=== PATIENT | male | born 1935 | race African-American/Black ===

== ENCOUNTER 2017-04-25 10:30 | Inpatient (IN) | payer OTHER, MEDICARE ==
[~2017-04-25] VITALS: Ht 172.7 cm; Wt 73.5 kg
[2017-04-25] MEDS ORDERED: SODIUM CHLORIDE 0.9% 1,000 ML IV ONE (10:44)
[2017-04-25] MEDS ORDERED: ONDANSETRON HCL 4MG/2ML VIAL IV ONE (11:15)
[2017-04-25 11:34] LABS: BASOPHILS % 0.3 % (0.0-2.0); EOSINOPHILS % 0.3 % (0.0-5.0); HEMATOCRIT. 50.2 % (42.0-52.0); HEMOGLOBIN. 15.9 g/dL (14.0-18.0); LYMPHOCYTES % 18.8 % (20.0-50.0); MEAN CORPUSCULAR VOLUME 101.3 fL (80.0-94.0); MEAN PLATELET VOLUME 10.1 fl (7.4-10.4); MONOCYTES % 4.8 % (2.0-8.0); NEUTROPHILS % 75.8 % (40.0-76.0); PLATELET 144 x1000/uL (130-400); RED BLOOD CELL COUNT 4.95 mill/uL (4.7-6.1); RED CELL DISTRIBUTION WIDTH 16.7 % (11.6-14.6)
[2017-04-25 11:52] LABS: CARBON DIOXIDE 21 mEq/L (21-32); CHLORIDE 133 mEq/L (98-107); ETHANOL BLOOD < 10 mg/dL; TROPONIN I 0.15 ng/mL (0.00-0.04)
[2017-04-25 11:53] LABS: INR 1.4; PROTHROMBIN TIME 14.1 sec (9.4-11.6)
[2017-04-25 12:00] LABS: PARTIAL THROMBOPLASTIN TIME < 21.0 sec (23.4-31.0)
[2017-04-25] MEDS ORDERED: CEFTRIAXONE 1 G PREMIX 50 ML IV ONE (12:15)
[2017-04-25 12:18] LABS: GLUCOSE URINE NEGATIVE (NEGATIVE); KETONES URINE TRACE (NEGATIVE); LEUKOCYTE ESTERASE URINE NEGATIVE (NEGATIVE); NITRITE URINE NEGATIVE (NEGATIVE); OCCULT BLOOD URINE 2+ (NEGATIVE); PROTEIN URINE 2+ (NEGATIVE)
[2017-04-25 12:30] LABS: AMMONIA 35 uMol/L (<32)
[2017-04-25 12:34] LABS: CLARITY URINE CLOUDY (CLEAR); COLOR URINE YELLOW (YELLOW)
[2017-04-25 12:35] LABS: BG BASE EXCESS -8.8 mmol/L (-2.0-2.0); BG CARBOXYHEMOGLOBIN 0.3 % (0.5-1.5); BG DEOXYHEMOGLOBIN 3.4 % (0.0-5.0); BG HCO3 ACT 15.1 mmol/L (22.0-26.0); BG METHEMOGLOBIN 0.1 % (0.0-1.5); BG OXYGEN SATURATION 96.6 % (92.0-98.5); BG OXYHEMOGLOBIN 96.2 % (94.0-97.0); BG PCO2 28.2 mmHg (35.0-45.0); BG PH 7.347 (7.350-7.450); BG PO2 98.3 mmHg (75.0-100.0); BG SAMPLE SITE RIGHT RADIAL; BG VENT MODE ROOM AIR
[2017-04-25 12:41] LABS: *AMPHETAMINES SCREEN URINE NEGATIVE (NEGATIVE); *BARBITURATES SCREEN URINE NEGATIVE (NEGATIVE); *BENZODIAZEPINES SCREEN URINE NEGATIVE (NEGATIVE); *COCAINE SCREEN URINE NEGATIVE (NEGATIVE); CANNABINOID URINE SCREEN NEGATIVE (NEGATIVE); METHADONE URINE SCREEN NEGATIVE (NEGATIVE); OPIATES URINE SCREEN NEGATIVE (NEGATIVE); PHENCYCLIDINE URINE SCREEN NEGATIVE (NEGATIVE)
[2017-04-25] MEDS ORDERED: DEXT 5%/0.45% NACL 1000ML 1,000 ML IV SCH (13:33)
[2017-04-25] MEDS ORDERED: IPRATROPIUM/ALBUTEROL 0.5-3(2.5)MG/3ML NEB INH PRN (13:45)
[2017-04-25] MEDS ORDERED: ONDANSETRON HCL 4MG/2ML VIAL IV PRN (13:45)
[2017-04-25] MEDS ORDERED: DOCUSATE SODIUM 100MG CAPSULE PO PRN (13:45)
[2017-04-25] MEDS ORDERED: MAGNESIUM/ALUMINUM HYDROXIDE/SIMETHICONE 30ML UDC PO PRN (13:45)
[2017-04-25] MEDS ORDERED: DIPHENHYDRAMINE 50MG/ML VIAL IV PRN (13:45)
[2017-04-25] MEDS ORDERED: ACETAMINOPHEN 325MG TABLET PO PRN (13:45)
[2017-04-25] MEDS ORDERED: CLONIDINE 0.1MG TABLET PO PRN (13:45)
[2017-04-25] MEDS ORDERED: GUAIFENESIN 200MG/10ML SUGAR FREE UDC PO PRN (13:45)
[2017-04-25] MEDS ORDERED: NA PHOS,M-B/NA PHOS,DI-BA ENEMA 118ML PR PRN (13:45)
[2017-04-25 16:25] VITALS: BP 144/85
[2017-04-25] MEDS ORDERED: SODIUM CHLORIDE 0.45% 1,000 ML IV SCH (16:30)
[2017-04-25 16:41] VITALS: BP 144/82
[2017-04-25] MEDS ORDERED: DEXTROSE 50% WATER 50ML SYRINGE IV PRN (16:45)
[2017-04-25] MEDS ORDERED: SODIUM CHLORIDE 0.9% 500 ML IV ONE (17:00)
[2017-04-25] MEDS: BLOOD SUGAR DIAGNOSTIC STRIP TEST SCH ×2 (17:22→21:11)
[2017-04-25] MEDS: ENOXAPARIN 30MG/0.3ML SYR SUBCUT SCH (17:50)
[2017-04-25] MEDS: INSULIN LISPRO 100 UNITS/ML SUBCUT SCH ×2 (17:51→21:00)
[2017-04-25] MEDS ORDERED: ASPI-986 PO (17:54)
[2017-04-25] MEDS ORDERED: AMLO10TA80 PO (17:54)
[2017-04-25] MEDS ORDERED: ATOR20TA65 PO (17:55)
[2017-04-25 19:35] LABS: FOLIC ACID (FOLATE) SERUM 10.8 ng/mL (>5.38)
[2017-04-25 20:00] VITALS: BP 145/99
[2017-04-25] MEDS ORDERED: LEVOFLOXACIN 500MG PREMIX 100 ML IV SCH (20:00)
[2017-04-25 20:40] LABS: CARBON DIOXIDE 19 mEq/L (21-32); CHLORIDE 138 mEq/L (98-107)
[2017-04-25 20:51] LABS: CREATINE KINASE MB FRACTION 5.3 ng/mL (0.5-3.6); HDL CHOLESTEROL 36 mg/dL (40-59); LDL CHOLESTEROL 89 mg/dL (5-100); T4 FREE 1.35 ng/dL (0.76-1.46); TOTAL IRON BINDING CAPACITY 177 ug/dL (250-450); TROPONIN I 0.16 ng/mL (0.00-0.04)
[2017-04-25] MEDS ORDERED: FAMOTIDINE 20MG/2ML VIAL IV SCH (21:00)
[2017-04-25] MEDS ORDERED: DEXTROSE 5% WATER 1,000 ML IV SCH (21:15)
[2017-04-25] MEDS: SODIUM CHLORIDE 0.45% 1,000 ML IV SCH (21:30)
[2017-04-25] MEDS ORDERED: DEXT 5% WATER 500 ML IV SCH (22:00)
[2017-04-25] MEDS ORDERED: LEVOFLOXACIN 500MG PREMIX 100 ML IV NR ×2 (23:00→23:30)
[2017-04-26] VITALS: BP 142/84
[2017-04-26 01:00] LABS: SODIUM URINE RANDOM 49 mEq/L
[2017-04-26 01:08] LABS: *AMPHETAMINES SCREEN URINE NEGATIVE (NEGATIVE); *BARBITURATES SCREEN URINE NEGATIVE (NEGATIVE); *BENZODIAZEPINES SCREEN URINE NEGATIVE (NEGATIVE); *COCAINE SCREEN URINE NEGATIVE (NEGATIVE); CANNABINOID URINE SCREEN NEGATIVE (NEGATIVE); METHADONE URINE SCREEN NEGATIVE (NEGATIVE); OPIATES URINE SCREEN NEGATIVE (NEGATIVE); PHENCYCLIDINE URINE SCREEN NEGATIVE (NEGATIVE)
[2017-04-26] MEDS: BLOOD SUGAR DIAGNOSTIC STRIP TEST SCH ×3 (07:40→18:12)
[2017-04-26 08:00] VITALS: BP 143/84
[2017-04-26] MEDS: INSULIN LISPRO 100 UNITS/ML SUBCUT SCH ×3 (08:10→18:10)
[2017-04-26] MEDS ORDERED: CEFTRIAXONE 1 G PREMIX 50 ML IV SCH ×2 (09:00)
[2017-04-26] MEDS: SODIUM CHLORIDE 0.45% 1,000 ML IV SCH (09:35)
[2017-04-26 10:22] LABS: BASOPHILS % 0.4 % (0.0-2.0); EOSINOPHILS % 0.9 % (0.0-5.0); HEMATOCRIT. 43.3 % (42.0-52.0); HEMOGLOBIN. 13.6 g/dL (14.0-18.0); LYMPHOCYTES % 15.7 % (20.0-50.0); MEAN CORPUSCULAR HEMOGLOBIN 31.3 pg (28.0-32.0); MEAN CORPUSCULAR VOLUME 99.4 fL (80.0-94.0); MONOCYTES % 8.1 % (2.0-8.0); NEUTROPHILS % 74.9 % (40.0-76.0); PLATELET 124 x1000/uL (130-400); RED BLOOD CELL COUNT 4.35 mill/uL (4.7-6.1); RED CELL DISTRIBUTION WIDTH 16.4 % (11.6-14.6)
[2017-04-26 10:41] LABS: CREATINE KINASE MB FRACTION 5.3 ng/mL (0.5-3.6); PHOSPHORUS 3.6 mg/dL (2.5-4.9)
[2017-04-26 10:43] LABS: TROPONIN I 0.17 ng/mL (0.00-0.04)
[2017-04-26 12:00] VITALS: BP 135/82
[2017-04-26 16:00] VITALS: BP 152/96
[2017-04-26] MEDS ORDERED: DEXTROSE 5% WATER 1,000 ML IV SCH (16:15)
[2017-04-26] MEDS: ENOXAPARIN 30MG/0.3ML SYR SUBCUT SCH (18:00)
[2017-04-26 18:04] VITALS: BP 152/96
[2017-04-26 20:00] VITALS: BP 135/89
[2017-04-26] MEDS ORDERED: LEVOFLOXACIN 250MG PREMIX 50 ML IV SCH (23:30)
== END 2017-04-26 20:40 | disposition short-term general hospital (02) | DRG 871 ==
LOC: EDBD 10:30 → ER 10:30 → 7WST 12:05 → EDBEDREQ 12:07 → ENRESERV 13:09
PROVIDERS: ADMIT Internal Medicine; ATTEND Internal Medicine
DX: A41.9 Sepsis, unspecified organism (principal); G92 Toxic encephalopathy; N17.0 Acute kidney failure with tubular necrosis; I21.4 Non-ST elevation (NSTEMI) myocardial infarction; E87.4 Mixed disorder of acid-base balance; C79.51 Secondary malignant neoplasm of bone; E87.0 Hyperosmolality and hypernatremia; E44.0 Moderate protein-calorie malnutrition; E11.65 Type 2 diabetes mellitus with hyperglycemia; C34.31 Malignant neoplasm of lower lobe, right bronchus or lung; C34.32 Malignant neoplasm of lower lobe, left bronchus or lung; I48.91 Unspecified atrial fibrillation; J43.9 Emphysema, unspecified; E04.9 Nontoxic goiter, unspecified; I25.10 Atherosclerotic heart disease of native coronary artery without angina pectoris; Z60.2 Problems related to living alone; N20.0 Calculus of kidney; Z68.24 Body mass index [BMI] 24.0-24.9, adult
CPT/HCPCS: 36415; 36600; 70450; 71010; 71250; 76770; 80048; 80053; 80061; 80305; 80307; 80329; 81001; 82140; 82375; 82553; 82607; 82746; 82805; 82962; 83036; 83540; 83550; 83605; 83735; 83880; 83935; 84100; 84300; 84439; 84443; 84484; 85025; 85610; 85730; 87040; 87086; 93005; 93970; 96361; 96365; 99285; G0482; J0696; J1200; J1956; J3490; J7030; J7070